=== PATIENT | male | born 1930 | race Caucasian/White ===

== ENCOUNTER → 2017-01-21 | Outpatient (CLI) | payer OTHER | LOC: FIMAGING 12:50 | PROVIDERS: ATTEND Family Medicine Sports Medicine | DX: M79.662 Pain in left lower leg (principal) ==

== ENCOUNTER 2018-07-01 16:20 | Emergency (ER) | payer OTHER ==
[2018-07-01 16:26] VITALS: BP 181/74
[2018-07-01] MEDS ORDERED: HYDROCODONE/APAP 5/325 TAB PO ONE (16:38)
--- NOTE | 2018-07-01 16:47 | EDPHY ---
H & P Time Seen by Provider: 07/01/18 16:32 HPI/ROS: CHIEF COMPLAINT: Left-sided chest pain HISTORY OF PRESENT ILLNESS: Patient was at home and leaned over the arm of the couch to hang the phone up any pushed the left side of his chest against a hard part on the sofa and developed sudden onset of pain in the left side of his chest and ribs. Worse with movement or coughing or laughing. Does not radiate. Not associated with rash or fever or chills or nausea or jaw or neck or back pain. He was feeling well right before this. REVIEW OF SYSTEMS: Eye: no change in vision ENT: no sore throat Cardiac: HPI Pulmonary: HPI Abdomen: no vomiting, diarrhea, abdominal pain Musculoskeletal: no back pain Skin: no rash Neuro: no headache Constitutional: no fever : no urinary symptoms A comprehensive 10 point review of systems is otherwise negative aside from elements mentioned in the history of present illness. PAST MEDICAL HISTORY: Includes hypothyroid, hypertension, essential tremor with deep brain stimulator, peripheral neuropathy Social history: , current nonsmoker 36.6 General Appearance: Alert and conversant, cooperative. Eyes: No scleral icterus. ENT, Mouth: Normal mucous membranes. Respiratory: Splinting, able to speak full sentences, breath sounds present bilaterally. Cardiovascular: Regular rate and rhythm. Gastrointestinal: Abdomen is soft and non tender. Neurological: Alert, face symmetric, normal motor and sensory in extremities. Skin: Warm and dry, no rashes. No zoster. Musculoskeletal: Point tender over mid chest ribs on the left-hand side. Psychiatric: Not agitated. Emergency Department course/MDM: Clearly musculoskeletal or pneumothorax, clearly not pulmonary embolism or ACS by history and physical examination. [place] x1, chest x-ray reviewed at 5:06 p.m. Is negative for acute abnormality. Specifically no pneumothorax. Results discussed. He is comfortable until he moves or coughs or laughs, in which case he gets pretty significant pain. More likely to be muscular spasm, plan to treat with lidocaine patch and oral pain medication with outpatient follow-up. Patient says he is comfortable with that plan which I think is reasonable. Smoking Status: Former smoker Constitutional: Initial Vital Signs Heart Rate 80 07/01/18 16:22 Respiratory Rate 18 07/01/18 16:22 Blood Pressure 181/74 H 07/01/18 16:22 O2 Sat (%) 98 02/15/19 16:22 O2 Delivery Mode Room Air Allergies/Adverse Reactions: No Known Allergies Allergy (Verified 07/01/18 16:26) Home Medications: Medication Instructions Recorded Hydrochlorothiazide [HCTZ (*)] 12/06/15 Levothyroxine [Synthroid 50 mcg 12/06/15 (*)] Lansoprazole [Prevacid] 12/12/15 Hydrocodone/APAP 5/325 [[place] 01/07/16 5/325 (*)] Lidocaine 5% [Lidoderm 5% Patch] 1 ea TD DAILY PRN #7 patch 07/01/18 oxyCODONE/APAP 5/325 [Percocet] 1 tab PO Q4-6PRN PRN #11 tab 07/01/18 Medical Decision Making - Diagnostics Imaging Results: Imaging Impressions Chest X-Ray 07/01/18 16:38 Impression: Negative chest. Imaging: I viewed and interpreted images myself - Data Points Medications Given: Discontinued Medications Hydrocodone Bitart/Acetaminophen ([place] 5/325) 1 tab PO EDNOW ONE Stop: 07/01/18 16:39 Last Admin: 07/01/18 16:42 Dose: 1 tab Departure - Departure Disposition: Home, Routine, Self-Care Clinical Impression: Chest wall pain Condition: Good Instructions: Chest Wall Pain (ED) Referrals: Mike Maria MD [Primary Care Provider] - As per Instructions Prescriptions: Lidocaine 5% [Lidoderm 5% Patch] 1 ea TD DAILY PRN #7 patch PRN Reason: pain oxyCODONE/APAP 5/325 [Percocet] 1 tab PO Q4-6PRN PRN #11 tab PRN Reason: Pain
[2018-07-01] MEDS ORDERED: LIDOCAINE 4%/MENTHOL 1% PATCH TD ONE (17:14)
[2018-07-01] MEDS ORDERED: PATCH REMOVAL 1 EA PATCH TD SCH (21:00)
== END 2018-07-01 17:22 | disposition home or self-care (01) ==
DX: R07.89 Other chest pain (principal); I10 Essential (primary) hypertension

== ENCOUNTER → 2018-08-01 | Outpatient (CLI) | payer OTHER ==
[~2018-08-01] MED LIST: IOPAMIDOL (ISOVUE-300) 100 ML BTL ONE
== END ==
LOC: FIMAGING 09:37
PROVIDERS: ATTEND Specialist
DX: R31.29 Other microscopic hematuria (principal)
CPT/HCPCS: 74178; Q9967

== ENCOUNTER 2018-08-11 17:45 | Emergency (ER) | payer OTHER ==
--- NOTE | 2018-08-11 18:07 | EDPHY ---
General Time Seen by Provider: 08/11/18 18:06 Narrative: CLINICAL IMPRESSION: Fall, facial laceration, right hip pain and hematuria ASSESSMENT/PLAN: Patient is an 87-year-old male with a history of essential tremor, hypertension and hypothyroidism who presents to the emergency department after sustaining a mechanical fall complaining of facial laceration, hematuria and right hip pain. Patient is afebrile, he is not toxic appearing and in no acute distress. His neurological exam is grossly normal, no focal deficit. He is able to ambulate slowly however without difficulty with a cane. Patient did hit his head, there was no loss of consciousness. Secondary to age and concern for a shear injury and facial fracture proceeded with head CT which revealed no intracranial hemorrhage however he was found to have a nondisplaced right lateral maxillary fracture. Abdomen and pelvis CT revealed no evidence of intra-abdominal traumatic abnormality or pelvic fracture, multiple bladder calculi were noted, findings consistent with a soft tissue hematoma overlying the right trochanter. History of physical examination is consistent with facial laceration, nondisplaced right maxillary fracture, hematuria which I suspect is secondary to his known multiple bladder calculi and right hip hematoma. There were no findings to suggest intracranial hemorrhage, vertebral fracture, traumatic spinal injury, cauda equina, traumatic intrathoracic/intra-abdominal injury, pelvic fracture, hip dislocation, compartment syndrome or neurovascular compromise. The patient declined any need for pain medication in the emergency department. His facial laceration was repaired as discussed in the procedure note, he tolerated this well. He is well established with his primary care provider and will call to schedule appointment for repeat examination tomorrow. He already has an appointment scheduled with his urologist for planned cystoscopy later this month. He was given and ENT referral for follow-up of his maxillary fracture. Conservative return precautions discussed-patient will return for development of headache, dizziness, visual changes, chest pain, shortness of breath or for any other concerning symptom. Patient verbalizes understanding and he is in agreement with this plan. DIFFERENTIAL DX: Differential diagnosis including but not limited to concussion, skull fracture, intraparenchymal contusion, subarachnoid, subdural and epidural hematoma, intrathoracic/intra-abdominal traumatic injury, pelvic fracture. ED COURSE: 1820: Case discussed with Dr. Cook 1929: Case discussed with Dr. Noe, findings suggestive of a right nondisplaced maxillary fracture. There is a hematoma on the right subcutaneous hip tissue adjacent to the trochanter. No evidence of fracture. ED PROCEDURE: Laceration Repair Verbal consent obtained by patient. Risks discussed, including but not limited to infection, pain, retained foreign body, need for additional repair, poor cosmetic result, tendon damage, nerve damage, poor wound healing, vascular damage. Alternatives to repair discussed. Whiting protocol used to establish correct patient, procedure, equipment, technical support representative, and site. Anesthesia obtained by topical application. Anesthetized with let. 2 cm abrasion with 2 separate superficial lacerations, each laceration is 5 mm in length, non gaping in nature. Patient was prepped and draped in usual sterile fashion. Hemostasis achieved with direct pressure. Wound explored through full range of motion and entire depth of wound probed and visualized with gloved finger. No suspicion for nerve damage, tendon damage, underlying fracture, vascular damage, foreign body, or contamination. Area was cleansed with Shur-Clens and irrigated with sterile saline as per protocol. No foreign body or material removed. Repair method tissue adhesive. Well aligned, closely approximated. Patient tolerated well with no immediate complications. Wound care: Keep area clean and dry, allow Dermabond to come off on its own. CHIEF COMPLAINT: Fall, facial laceration, hematuria and right hip pain HPI: Patient is an 87-year-old male with a history of essential tremor, hypertension and hypothyroidism who presents to the emergency department after sustaining a fall complaining of facial laceration, hematuria and right hip pain. Patient reports he was walking on the trach at his local gym, he was rounding a corner when he lost balance falling directly onto his right hip and subsequently striking his head on the floor. He did not lose consciousness, he is not on aspirin or anticoagulation. He denies any headache, dizziness, neck or back pain. Patient was able to get up, noticed some right hip pain and deformity along the lateral aspect. He has been able to ambulate with a limp. He denies any radiation of the pain or significant decreased mobility. Patient also endorses te hematuria after the fall. He does have a history of bladder stones with planned cystoscopy on August [address] Santoro. He has never had visible hematuria in the past. He denies any flank or abdominal pain. Patient denies saddle paresthesias, lower extremity numbness, tingling, major motor weakness, urinary retention or bowel/bladder incontinence. PMH: Essential tremor, hypertension, hypothyroidism Family History: Noncontributory Social History: Former smoker, denies illicit drug use or frequent alcohol use REVIEW OF SYSTEMS: All other systems negative Constitutional: No fever, no chills, appetite change. Eyes: No discharge, vision change ENT: No sore throat, congestion, ear pain. Cardiovascular: No chest pain, no palpitations. Respiratory: No cough, no shortness of breath. Gastrointestinal: No abdominal pain, no vomiting, diarrhea. Genitourinary: Hematuria. No dysuria, flank pain, pelvic pain Musculoskeletal: Right hip pain. No back pain, joint swelling, joint pain, myalgias. Skin: No rashes, color change. Neurological: No headache, dizziness, weakness. PHYSICAL EXAM: General Appearance: Patient is elderly, well-appearing and in no acute distress. HENT: Normocephalic, patient with combination of abrasion and laceration noted to the superior lateral right brow, abrasion extends on to right cheek; patient mildly tender to palpation along the right maxilla. No other orbital tenderness to palpation, no orbital deformity. Bilateral external ears are normal. Bilateral tympanic membranes are normal without evidence of hemotympanum. No Mejias sign or raccoon eyes. Nares are clear, mucosa is pink. No nasal bridge tenderness to palpation. Oropharynx is clear, uvula is midline. There is no tonsillar enlargement or exudate. The dentition is normal. There is no mandibular tenderness to palpation. Eyes: PERRLA, EOMI intact without evidence of entrapment. Conjunctiva pink, no pallor or injection. Neck: Supple, nontender, no lymphadenopathy, no midline pain, FROM. Back: No step-off, palpable bony abnormality, edema, erythema or ecchymosis of the cervical, thoracic or lumbar spines. Patient has no tenderness to palpation of the midline thoracic or lumbar spines. 5/5 and equal strength of the UEs and LEs bilaterally including shoulder shrug. Pulses: 2+ and equal radial, DP and PT pulses bilaterally. Sensation intact and symmetric to light touch from face, UEs and LEs bilaterally. Right lateral hip with firm deformity noted, no ecchymosis or abrasions. This firm area is tender to palpation. Pain is not increased with flexion, extension or rotation. Respiratory: There are no retractions, lungs are clear to auscultation. Patient has no chest wall tenderness. Cardiac: Regular rate and rhythm, no murmurs or gallops. Gastrointestinal: Abdomen is soft, nontender, bowel sounds normal, no masses/ hernia, no rigidity, guarding or focal peritoneal findings. No flank tenderness bilaterally Neurological: Alert and oriented x 3, CN 2-12 grossly intact, DTR's intact, normal sensation and strength. Gait is slow however normal with a cane. Skin: Warm, dry, no rashes, no nodules on palpation. Musculoskeletal: Extremities are symmetrical, full range of motion, no tenderness, deformity, swelling, or erythema. Psychiatric: Patient is oriented X 3, there is no agitation. MEDICAL DECISION MAKING: Patient was seen independently. Secondary supervising physician at time of evaluation was Dr. Cook. Diagnosis: Fall, facial laceration, hematuria and right hip pain. New, requires workup Summary: See Assessment and Plan for summary of ED visit Clinical lab tests: ordered / reviewed. Independent visualization of images, tracing, or specimens: Yes. Decision to obtain medical records or history from someone other than the patient: No Review / Summarize previous medical records: Yes Discussed patient with another provider: Yes, Dr. Cook Patient Progress: Stable, discharge. - Diagnostics Imaging Results: Imaging Impressions Abdomen CT 08/11/18 18:18 Impression: 1. Numerous bladder calculi dependent in the bladder. Nonspecific enlarged prostate. 2. No evidence for renal hematoma or laceration. Stable mildly complex exophytic cyst off the inferior pole of the left kidney 3. Hematoma in the subcutaneous fat overlying the greater trochanter on the right. No evidence for acute fracture. 4. Other chronic findings as above. Results called and discussed with ILIANA Hercules on August 11, [address] 08/11/18 18:19 Impression: 1. No evidence for acute intracranial abnormality. Stable left-sided deep brain stimulator wire. 2. Mild periventricular white matter change, which is stable in appearance. Generalized cerebral atrophy, which is stable. 3. Nondisplaced right lateral maxillary sinus wall fracture with a small air- fluid level in the right maxillary sinus. Results called and discussed with ILIANA Hercules on August 11, 2018 at 1912 hours. - History Smoking Status: Former smoker - Objective Vital Signs: Initial Vital Signs Temperature (C) 36.6 C 08/11/18 18:01 Heart Rate 91 08/11/18 18:01 Respiratory Rate 16 08/11/18 18:01 Blood Pressure 159/94 H 08/11/18 18:01 O2 Sat (%) 95 08/11/18 18:01 O2 Delivery Mode Room Air Allergies/Adverse Reactions: No Known Allergies Allergy (Verified 08/11/18 18:04) Home Medications: Medication Instructions Recorded Hydrochlorothiazide [HCTZ (*)] 12/06/15 Levothyroxine [Synthroid 50 mcg 12/06/15 (*)] Lansoprazole [Prevacid] 12/12/15 Hydrocodone/APAP 5/325 [[place] 01/07/16 5/325 (*)] Lidocaine 5% [Lidoderm 5% Patch] 1 ea TD DAILY PRN #7 patch 07/01/18 oxyCODONE/APAP 5/325 [Percocet] 1 tab PO Q4-6PRN PRN #11 tab 07/01/18 Laboratory Results: 08/11/18 18:34 POC Hgb 15.0 gm/dL gm/dL (13.7-17.5) POC Hct 44 % % (40-51) POC Sodium 136 mEq/L mEq/L (135-145) POC Potassium 3.3 mEq/L mEq/L (3.3-5.0) POC Chloride 97 mEq/L mEq/L (97-110) POC Total CO2 23 mEq/L mEq/L (22-31) POC BUN 17 mg/dL mg/dL (7-23) POC Creatinine 0.7 mg/dL mg/dL (0.7-1.3) POC Glucose 137 mg/dL H mg/dL (70-100) Medications Given: Discontinued Medications Tetracaine/Epinephrine/Lidocaine (Let Gel Topical) 1 ea TP EDNOW ONE Stop: 08/11/18 18:21 Last Admin: 08/11/18 18:40 Dose: 1 ea Point of Care Test Results: Chemistry 08/11/18 18:34 POC Sodium 136 mEq/L mEq/L (135-145) POC Potassium 3.3 mEq/L mEq/L (3.3-5.0) POC Chloride 97 mEq/L mEq/L (97-110) POC Total CO2 23 mEq/L mEq/L (22-31) POC BUN 17 mg/dL mg/dL (7-23) POC Creatinine 0.7 mg/dL mg/dL (0.7-1.3) POC Glucose 137 mg/dL H mg/dL (70-100) ISTAT H&H 08/11/18 18:34 POC Hgb 15.0 gm/dL gm/dL (13.7-17.5) POC Hct 44 % % (40-51) Departure - Departure Disposition: Home, Routine, Self-Care Clinical Impression: Fall Qualifiers: Encounter type: initial encounter Qualified Code(s): W19.XXXA - Unspecified fall, initial encounter Maxillary fracture Qualifiers: Encounter type: initial encounter Fracture type: closed Laterality: right Qualified Code(s): S02.40CA - Maxillary fracture, right side, initial encounter for closed fracture Laceration of face Qualifiers: Encounter type: initial encounter Qualified Code(s): S01.81XA - Laceration without foreign body of other part of head, initial encounter Hip hematoma, right Qualifiers: Encounter type: initial encounter Qualified Code(s): S70.01XA - Contusion of right hip, initial encounter Condition: Good Instructions: Laceration (ED), Facial Fracture (ED), Hematoma (ED) Additional Instructions: DISCHARGE INSTRUCTIONS FROM YOUR DOCTOR Thank you for visiting our emergency department today. Please keep in mind that discharge from the emergency department does not mean that there is nothing wrong - it simply means that we have not identified an emergency condition that requires further evaluation or treatment in the hospital. Keep wound clean and dry for 24 hours. Clean regularly in the shower, there is adhesive dressing on your wound, please let this fall off naturally. Do not take it. You were noted to have a nondisplaced fracture of your right maxillary bone. Please follow-up with ENT in the next week for repeat examination. Tylenol every 4-6 hours as directed as needed for pain. Do not exceed 3000 mg in 24 hours. Ibuprofen as directed every 6-8 hours with food as needed for pain. Stop for stomach upset. Do not exceed 2400 mg in 24 hours. Continue your regular medications as prescribed. You may ice the hematoma noted on your right hip, walk as tolerated. Please use your cane as we discussed. Schedule a follow-up visit with your primary care physician tomorrow for repeat examination. Return for signs of wound infection ie: redness, swelling, drainage, foul odor, red streaks, fever, chills, pain, bleeding, if the wound opens or for any other new, worsening or worrisome symptoms. People present with illnesses and injuries in different ways, and it is always possible that we have missed something. You may always return for re-evaluation if symptoms worsen or if they are not improving or if you develop new/different symptoms. Again, thank you for choosing our emergency department. We hope that you feel better. Referrals: Mike Maria MD [Primary Care Provider] - 1 day without fail Hima Uribe MD [Medical Doctor] - 2-3 days, call for appt.
[2018-08-11] MEDS ORDERED: LET GEL TOPICAL 1 EA SYR TP ONE (18:20)
[2018-08-11] MEDS ORDERED: IOPAMIDOL (ISOVUE-300) 100 ML BTL ONE (18:39)
[2018-08-11] MEDS ORDERED: SKIN ADHESIVE (DERMABOND) 1 EACH TP ONE (19:19)
[2018-08-11 20:04] VITALS: BP 162/89
== END 2018-08-11 20:24 | disposition home or self-care (01) ==
PROC: 0HQ1XZZ Repair Face Skin, External Approach (ICD-10-PCS; principal; 2018-08-11)
DX: S01.81XA Laceration without foreign body of other part of head, initial encounter (principal); S02.40CA Maxillary fracture, right side, initial encounter for closed fracture; S70.01XA Contusion of right hip, initial encounter; W19.XXXA Unspecified fall, initial encounter; Y92.39 Other specified sports and athletic area as the place of occurrence of the external cause; Y93.01 Activity, walking, marching and hiking
CPT/HCPCS: 12051; 70450; 74177; 99285; Q9967; 82435-PO; 82565-PO; 82947-PO; 84132-PO; 84295-PO; 84520-PO; 85014-ER

== ENCOUNTER 2018-10-13 05:40 | Day surgery (SDC) | payer OTHER ==
[2018-10-13] MEDS ORDERED: LR 1,000 ML IV ONE (06:02)
[2018-10-13] MEDS ORDERED: LIDOCAINE 1% 2 ML INJ ID PRN (06:02)
[2018-10-13] MEDS ORDERED: LIDOCAINE 1% 2 ML INJ ONE (06:05)
--- NOTE | 2018-10-13 06:55 | PDANEPAE ---
ANE History of Present Illness BPH here for green light procedure ANE Past Medical History - Cardiovascular History Hx Hypertension: Yes Hx Arrhythmias: No Hx Chest Pain: No Hx Coronary Artery / Peripheral Vascular Disease: No Hx CHF / Valvular Disease: No Hx Palpitations: No Cardiovascular History Comment: peripheral neuropathy feet and legs - Pulmonary History Hx COPD: No Hx Asthma/Reactive Airway Disease: No Hx Recent Upper Respiratory Infection: No Hx Oxygen in Use at Home: No Hx Sleep Apnea: No Sleep Apnea Screening Result - Last Documented: Positive - Neurologic History Hx Cerebrovascular Accident: No Hx Seizures: No Hx Dementia: No Neurologic History Comment: essential tremors - Endocrine History Hx Diabetes: No Endocrine History Comment: HYPOTHYROID - Renal History Hx Renal Disorders: No Renal History Comment: BPH - Liver History Hx Hepatic Disorders: No - Neurological & Psychiatric Hx Hx Neurological and Psychiatric Disorders: Yes Neurological / Psychiatric History Comment: MIGRAINES - Cancer History Hx Cancer: Yes Cancer History Comment: SKIN - Congenital Disorder History Hx Congenital Disorders: No - GI History Hx Gastrointestinal Disorders: Yes Gastrointestinal History Comment: gastric reflux - Other Health History Other Health History: ANEMIA. PERIPHERAL NEUROPATHY. MACULAR DEGENERATION - Chronic Pain History Chronic Pain: No - Surgical History Prior Surgeries: tonsilectomy. DBS placed ANE Review of Systems Review of Systems: - Exercise capacity METS (RN): 4 METS ANE Patient History - Allergies Allergies/Adverse Reactions: No Known Allergies Allergy (Verified 10/13/18 06:09) - Home Medications Home Medications: Hydrochlorothiazide [HCTZ (*)] 12/06/15 [Last Taken 10/12/18 07:15] Levothyroxine [Synthroid 50 mcg (*)] 12/06/15 [Last Taken 10/12/18 07:15] - NPO status NPO Status: no food or drink >8 hours NPO Since - Liquids (Date): 10/12/18 NPO Since - Liquids (Time): 18:00 NPO Since - Solids (Date): 10/12/18 NPO Since - Solids (Time): 18:00 - Anes Hx Anes Hx: no prior problems - Smoking Hx Smoking Status: Former smoker - Alcohol Use Alcohol Use: None - Family Anes Hx Family Anes Hx: none Family Hx Anesthesia Complications: none ANE Labs/Vital Signs - Vital Signs Blood Pressure: 145/82 Heart Rate: 71 Respiratory Rate: 12 O2 Sat (%): 96 Height: 170.18 cm Weight: 63.503 kg ANE Physical Exam - Airway Neck exam: decreased ROM Mallampati Score: Class 3 Mouth exam: normal dental/mouth exam Mouth image: 1 - missing - Pulmonary Pulmonary: no respiratory distress - Cardiovascular Cardiovascular: regular rate and rhythym - ASA Status ASA Status: III ANE Anesthesia Plan Anesthesia Plan: GA w LMA
[2018-10-13] MEDS ORDERED: LIDOCAINE 2% 100 MG/5 ML SYR ONE (06:58)
[2018-10-13] MEDS ORDERED: fentaNYL 100 MCG/2 ML INJ ONE (06:58)
[2018-10-13] MEDS ORDERED: LIDOCAINE 2% JELLY 20 ML (UROJECT) ONE (06:58)
[2018-10-13] MEDS ORDERED: PROPOFOL 200 MG/20 ML VIAL ONE (06:58)
--- NOTE | 2018-10-13 07:17 | PDHPUP ---
History & Physical Update H&P update statement: This history and physical update is based on an assessment of the patient which was completed after admission or registration (within 24 hours), but prior to the surgery/procedure. H&P update: no change in patient's condition since H&P completed
[2018-10-13] MEDS ORDERED: NALOXONE HCL 0.4 MG/ML INJ IVP PRN (08:54)
[2018-10-13] MEDS ORDERED: oxyCODONE IR 5 MG TAB PO PRN (08:54)
[2018-10-13] MEDS ORDERED: HYDROmorphONE/DILAUDID 1 MG/ML INJ IVP PRN (08:54)
[2018-10-13] MEDS ORDERED: HYDROCODONE/APAP 5/325 TAB PO PRN (08:54)
[2018-10-13] MEDS ORDERED: fentaNYL 100 MCG/2 ML INJ IVP PRN (08:54)
[2018-10-13] MEDS ORDERED: ACETAMINOPHEN 500 MG TAB PO PRN (08:54)
[2018-10-13] MEDS ORDERED: ONDANSETRON 4 MG/2 ML VIAL IVP PRN (08:54)
--- NOTE | 2018-10-13 09:07 | POSTANESTH ---
Post Anesthetic Evaluation Cardiovascular Status: Normal, Stable, Similar to Pre-Op Cond Respiratory Status: Normal, Stable, Similar to Pre-op Cond. Level of Consciousness/Mental Status: Can Participate in Eval, Alert and Oriented Pain Control: Adequate, Prn Tx Ordered Nausea/Vomiting Control: Adequate, Prn Tx Ordered Complications Possibly Related to Anesthesia: None Noted
--- NOTE | 2018-10-13 09:27 | POSTOPPROG ---
Post Op Note Date of Operation: 10/13/18 Surgeon: Sergei Santoro (# [id number]) Anesthesia: LMA Pre-op Diagnosis: 1. Multiple bladder calculi 2. BPH w/ obstruction Post-op Diagnosis: 1. Multiple bladder calculi 2. BPH w/ obstruction Procedure: Cystolitholapaxy (complex), Greenlight PVP Findings: See op note Inf/Abcess present in the surg proc area at time of surgery?: No EBL: Minimal Complications: None Specimen(s): Bladder calculi
--- NOTE | 2018-10-13 09:52 | GOP ---
[f rep st] OPERATIVE REPORT DATE OF OPERATION: 10/13/2018 SURGEON: Sergei Santoro MD ANESTHESIA: Laryngeal mask. PREOPERATIVE DIAGNOSIS: 1. Multiple obstructing bladder calculi. 2. Benign prostatic hypertrophy with urinary obstruction. POSTOPERATIVE DIAGNOSIS: 1. Multiple obstructing bladder calculi. 2. Benign prostatic hypertrophy with urinary obstruction. PROCEDURE PERFORMED: 1. Complex cystolitholapaxy with holmium laser. 2. GreenLight photovaporization of prostate. FINDINGS: 1. Multiple bladder calculi. 2. BPH with obstruction. SPECIMENS: Bladder calculi. ESTIMATED BLOOD LOSS: Minimal. INDICATIONS: This gentleman was recently found to have multiple bladder calculi, along with an obstr ucting prostate. It was recommended that he undergo intraoperative management. The indications for the procedures, as well as potential risks and complications, were discussed with the patient preoper atively. He appeared to understand, his questions were answered, and he wished to proceed. Written informed surgical consent was thereafter obtained. DESCRIPTION OF PROCEDURE: The patient was brought to the operating room and administered laryngeal m ask anesthesia. He was carefully placed in the dorsal lithotomy position on the cystoscopic table. The genital area was sterilely prepped with Betadine scrub and paint, and draped in the usual sterile fashion. I inserted the 30-degree cystoscopic lens with the 26-Yoruba resectoscopic sheath and visu al obturator. Anterior urethra was unremarkable. Posterior urethra revealed moderate circumferentia l BPH. The prostatic urethra was actually short in length, and the verumontanum was somewhat poorly developed. There was a high median bar at the level of the bladder neck. The bladder was moderately to heavily trabeculated. Multiple bladder calculi were present within the dependent portion of blad angel that ranged up to approximately 1.5 cm in diameter. Complete cystoscopy was not performed here, as it had been recently completed in the office. Ureteral orifices were normal in regard to shape an d position along the trigone. I then inserted the GreenLight laser bridge and used normal saline passive-continuous flow to initial ly address the bladder calculi. The bladder calculi were fragmented with a 550 micron holmium laser fiber. Then all the fragments were removed from the bladder successfully with an Ellik evacuator. T he bladder mucosa was intact following completion of this portion of procedure. I then decided to pr oceed with GreenLight photovaporization of prostate. The GreenLight XPS fiber was then brought onto the field. Again, using passive normal saline continu ous flow, I systematically vaporized the prostate starting at the bladder neck with 60 ibrahim of energ y. I then used this energy setting to paint the prostatic mucosa circumferentially from the level of the bladder neck and extending back toward the verumontanum. I then increased to a maximum of 100 w atts of energy, which was the energy setting used to vaporize the majority of the prostate adenoma. Vaporization was performed circumferentially until prostate capsular fibers were approximated. Hemos tasis was good throughout the procedure. At the conclusion of the tapered prostate vaporization, the prostatic fossa was widely patent, ureteral orifices were well preserved, and no vaporization had ta alfredo place distal to the verumontanum. The prostatic channel appeared to be widely patent visually at this point. The instruments were removed and a 20-Yoruba 3-way Cuellar catheter inserted with the use of a catheter guide. 35 cc of sterile water was placed in the balloon. The catheter irrigated manu ally, and the return was light pink. I decided to maintain some continuous bladder irrigation postop eratively. This was connected followed by securing the catheter to a drainage bag. The patient was awakened, transferred to his bed, then taken to the recovery room. He tolerated the procedure well overall. The urine return at this point was nearly completely clear. COMPLICATIONS: None. DISPOSITION: He was transferred to the recovery room in stable condition and will be discharged with his Cuellar catheter. Instructions will be provided for the patient or his to remove the Cuellar c atheter on Wednesday morning, then follow up in my office in approximately 1 month. /[id number]/MODL
[2018-10-13 11:04] VITALS: BP 155/85
== END 2018-10-13 11:30 | disposition home or self-care (01) ==
LOC: FSGY 05:40
PROVIDERS: ATTEND Specialist
PROC: 0V508ZZ Destruction of Prostate, Via Natural or Artificial Opening Endoscopic (ICD-10-PCS; principal; 2018-10-13 07:15)
PROC: 0TFB8ZZ Fragmentation in Bladder, Via Natural or Artificial Opening Endoscopic (ICD-10-PCS; principal; 2018-10-13 07:15)
DX: N21.0 Calculus in bladder (principal); N40.1 Benign prostatic hyperplasia with lower urinary tract symptoms; R33.8 Other retention of urine; E03.9 Hypothyroidism, unspecified; G62.9 Polyneuropathy, unspecified
CPT/HCPCS: 82365-90; J0696; J2001; J2704; J3010

== ENCOUNTER 2018-10-18 08:46 | Inpatient (IN) | payer OTHER | END 2018-10-20 15:45 | disposition home or self-care (01) | LOC: F2W 11:45 ==